=== PATIENT | female | born 1970 | race Two or more races ===

== ENCOUNTER 2020-07-11 16:42 | Emergency (ER) | payer SELFPAY ==
[2020-07-11 16:57] VITALS: BP 122/70; PULSE 82; RESP 16; TEMP 36.4; O2SAT 99
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
[2020-07-11] MEDS: HYDROcodone/acetaminophen (*CRX) 5-325 MG TABLET 1 TAB PO (19:30)
[2020-07-11] MEDS: LIDOCAINE HCL 2% VISC SOLN 15 ML UDC PO (19:31)
[2020-07-11 19:46] VITALS: BP 120/83; PULSE 68; RESP 16; TEMP 36.7; O2SAT 99
== END 2020-07-11 19:48 | disposition home or self-care (01) ==
PROVIDERS: Emergency Provider Emergency Medicine
DX: J02.9 Acute pharyngitis, unspecified (principal)
CPT/HCPCS: 87081; 87880; 99283; A9270

== ENCOUNTER 2024-09-28 15:00 | Emergency (ER) | payer SELFPAY ==
[2024-09-28] VITALS (13 sets, daily range): BP systolic 123–165; BP diastolic 76–87; PULSE 61–89; RESP 14–22; TEMP 36.4–36.7; O2SAT 99–100
--- NOTE | ~2024-09-28 | US_ITS ---
Limited ABDOMINAL ULTRASOUND (Doppler ultrasound interrogation techniques used as needed for this exa m.) Ordering provider: Eusebia Sykes MD History: . epigastric pain . Comparison: None. FINDINGS: PANCREAS: Normal echotexture and size. PORTAL VEIN: Hepatopedal flow demonstrated. LIVER: Normal size and increased echogenicity. No focal hepatic lesions or perihepatic fluid collecti ons are identified. BILIARY DUCTS: No intra or extrahepatic biliary dilation. Common bile duct measures 4.6 mm in diamete r which is normal for patient's age. GALLBLADDER: Normal. No stones, sludge, gallbladder wall thickening or pericholecystic fluid. Wall th ickness is 1.2 mm. Negative sonographic Dupree's sign. Inferior vena cava: Patent. FREE FLUID: None visualized within the upper abdomen. IMPRESSION: Right infiltration of the liver. Otherwise, normal limited abdominal ultrasound. Reviewed, dictated and finalized at location A. IMPRESSION: Right infiltration of the liver. Otherwise, normal limited abdominal ultrasound .
--- NOTE | ~2024-09-28 | CT_ITS ---
CT chest abdomen pelvis w con Ordering provider: Eusebia Sykes MD History: 54 years Female with . epigastric abd pain, heartburn . Comparison: None. Technique: CT chest with IV contrast. CT abdomen and pelvis CT abdomen and pelvis with IV and with or al contrast. Radiation reduction technique utilized.The dose-length product was 126.72 mGy-cm. FINDINGS: CHEST: --VISUALIZED THORACIC INLET: Normal. --MEDIASTINUM: Aorta/coronary arteries: The thoracic aorta is normal. Heart/other: The heart is not enlarged. Lymph nodes: No mediastinal or hilar adenopathy. --LUNGS: No pulmonary nodules or masses. No infiltrates or effusions. No pneumothorax. --MUSCULOSKELETAL: Soft tissues: The superficial soft tissues are normal. Bones: Age appropriate degenerative changes of the spine. No suspicious bony lytic or sclerotic lesio ns. ABDOMEN/PELVIS: --MUSCULOSKELETAL: Bones: Age appropriate degenerative changes of the spine. No suspicious bony lytic or sclerotic lesio ns. Superficial soft tissues: Tiny fat-containing umbilical hernia. The superficial soft tissues are norm al. --UPPER ABDOMINAL ORGANS: Liver: Normal. Gallbladder: Possible hyperdensities in the gallbladder is not excluded. Ultrasound evaluation advise d. Spleen: Normal. Stomach/duodenum: Normal. Pancreas: Normal. Adrenals: Left adrenal adenoma is seen measuring 2 x 1.9 cm. Further evaluation with dynamic MRI and clinical correlation advised. Kidneys: Normal. --PELVIC ORGANS: The bladder is underfilled with thickened wall. No bladder stones. --BOWEL AND MESENTERY: Colon: No evidence of appendicitis, diverticulitis or intestinal obstruction. The appendix is not dem onstrated.. Fecal material is loaded in the colon. Small Bowel: Normal. No obstruction. Peritoneum/mesentery: No free air or free fluid. No mesenteric lymphadenopathy. --RETROPERITONEUM: Normal aorta. No retroperitoneal lymphadenopathy. IMPRESSION: CHEST: 1. No acute cardiopulmonary pathology. ABDOMEN/PELVIS: 1. No evidence of appendicitis, diverticulitis or intestinal obstruction. 2. Constipation. 3. Left adrenal soft tissue density measuring 1.9 x 2 cm. Hounsfield unit is 84. Further evaluation with dynamic MRI is advised. 4. Possible hyperdensities in the gallbladder. Ultrasound evaluation advised. Reviewed, dictated and finalized at location A. IMPRESSION: CHEST: 1. No acute cardiopulmonary pathology. ABDOMEN/PELVIS: 1. No evidence of appendicitis, diverticulitis or intestinal obstruction. 2. Constipation. 3. Left adrenal soft tissue density measuring 1.9 x 2 cm. Hounsfield unit is 8 4. Further evaluation with dynamic MRI is advised. 4. Possible hyperdensities in the gallbladder. Ultrasound evaluation advised.
--- NOTE | 2024-09-28 15:11 | ECG_ITS ---
Test Date: 2024-09-28 15:30:15 Measurements Intervals [place] Rate: 75 P: 35 UT: 130 QRS: 10 QRSD: 84 T: 17 QT: 368 QTc: 411 Interpretive Statements SINUS RHYTHM CONSIDER RIGHT VENTRICULAR CONDUCTION DELAY LOW QRS VOLTAGE IN PRECORDIAL LEADS BASELINE ARTIFACT- I, II, III, AVR, AVL, AVF, V1-V3 BORDERLINE ECG No previous ECG available for comparison Electronically Signed On 09-28-2024 18:11:06 CDT by Ethan Obrien D.O.
--- NOTE | 2024-09-28 15:48 | ED_ITS ---
HPI - Abdominal Pain General Chief Complaint: Abdominal Pain Stated Complaint: abd pain Time Seen by Provider: 09/28/24 15:43 Source: patient and family (son) Mode of arrival: ambulatory Limitations: language barrier (Manager Erp [place] [id number]) History of Present Illness HPI narrative: Patient presents with multiple concerns. Most problematic is the epigatric abdominal pain with heartburn she has been experiencing for 3-4 days. She has been taking Zofran and gas relief as well as an OTC reflux medication and gaviscom. In addition, she has prescription bottles filled 09/27 for famotidine and pantoprazole prescribed by obdulio Motley through [facility]. It seems she presented to the ED for this issue there, not hospitalized and no further information known. No known GI diagnoses. Occasional rlq abdominal pain, especially when she sits up/flexion motion, she will get a firm lump like being . She has also been experiencing itchiness on her back and her helps by applying a hydrocortisone cream although they have never seen a rash there. History of 4 prior C sections but no other abdominal surgeries. Her symptoms are making it hard for her to eat and sleep. She has been constipated a little bit but no bloody stools. LBM was this morning. Has been eating rice. Did note that she had some fatty food and this made her symptoms worse. She has jodie nauseated but no vomiting (though at triage had said started vomiting after fatty foods so unclear). No Fevers/chills. Has had an increased need to burp. Also having a dry sore throat and left pain/cramping for months as well as an issue with the skin around her left ankle. Does not have a PCP. The medications she had been taking help briefly but wear off. Having heart burn. Becomes tearful at one point and states everything seems to be wrong / falling apart. Son notes that she seems to have more/worsening symptoms when having stressors in her life and most recently a grandson left. Related Data Home Medications ?Medication ?Instructions ?Recorded ?Confirmed ?Last Taken ?Type famotidine 20 mg tablet (Acid 20 mg PO BID 09/28/24 09/28/24 09/28/24 History Controller) pantoprazole 40 mg tablet,delayed 40 mg PO QAM 09/28/24 09/28/24 09/28/24 History release Allergies Allergy/AdvReac Type Severity Reaction Status Date / Time No Known Allergies Allergy Verified 09/28/24 15:11 PMFSH Surgical History Surgical History H/O excision of mass ?below arm History of section x4 Social History Social History Social History: Has a son Gender identity (if verbalized by the patient): Female Exam 2 Narrative: GENERAL: Well-appearing, well-nourished, and in no acute distress. HEAD: Normocephalic, atraumatic. EYES: Non injected, non icteric ENT: Nares clear, no rhinorrhea or epistaxis. Gross auditory acuity intact. Posterior oropharynx mildly hyperemic but without tonsilar hypertrophy/exudate NECK: Supple. No meningismus. CHEST: Speaking in full sentences. No respiratory distress. HEART: Regular rate and rhythm. . ABDOMEN: Soft, nondistended. No TTP throughout. No rigidity or guarding. Not peritoneal. Dupree negative. EXTREMITIES: Normal range of motion. SKIN: Warm, dry, no rash. In particular, no rash overlying back which is without erythema/excoriation/ecchymosis. NEURO: No focal deficits. Alert and oriented. Answering questions. Following commands. Normal speech without aphasia or dysarthria. PSYCH: Congruent mood and affect.Loquacious. Near the end of HPI/phyiscal exam encounter, becomes tearful. Does not appear to be responding to internal stimuli. Course Vital Signs Vital signs: Vital Signs Temperature 97.6 F 09/28/24 15:01 Pulse Rate 89 09/28/24 15:01 Respiratory Rate 16 09/28/24 15:01 Blood Pressure 149/76 H 09/28/24 15:01 Pulse Oximetry 100 09/28/24 15:01 Oxygen Delivery Room Air 09/28/24 15:01 Temperature 98.0 F 09/28/24 15:53 Pulse Rate 74 09/28/24 18:30 Respiratory Rate 16 09/28/24 18:30 Blood Pressure 165/87 H 09/28/24 16:15 Pulse Oximetry 100 09/28/24 18:30 Oxygen Delivery Room Air 09/28/24 15:53 MDM - Abdominal Pain MDM Narrative Medical decision making narrative: Patient presents with multiple concerns. Primary concern is epigastric abdominal pain and heartburn. Taking multiple medications already, some OTC and some apparently Rx from a provider through an ED yesterday. In the emergency department she is afebrile with acceptable vital signs, mild elevation in systolic blood pressure. Because patient already taking a number of first line medications, started with GI cocktail and then selected combination haldol and diphenhydramine for both pain/nausea and to facilitate some mild anxioloysis allowing her to lay still to obtain quality images for interpretation. Ultrasound read notes RIGHT infiltrate of liver. Initial assumption was that this was a dictation error to mean fatty but no mention of this in the body of the interpretation. I did attempt to contact the radiologist via the in-hospital number and cell phone but no response. Her lab work essentially unremarkable. Imaging as below. No leukocytosis. Normal renal function Extensively discussed patient's work up and discharge instructions using american sign language interpreter Robert [id number] from approximately 7:15-7:30pm. Patient and her son had many questions and I did my best to answer them. Noted that other than my written instructions in French which were being given with [place] interpretation, encouraged them to look at the discharge information in [place], especially regarding high fiber diet, constipation, etc. Went though individual medications prescribed and their role, and discussed the need for a PCP. Patient does report already drinking 2.5L water per day and I encouraged her in this. Discussed incidental finding and need for Pcp of which she is provided information for 2 different providers. Otherwise stable for discharge as no emergent etiology has been identified (low suspicion for surgical emergency / ischemic bowel / perforation / appendicitis. Differential Diagnosis Differential diagnosis: Likely abdominal pain, acute appendicitis, constipation, diverticulitis, endometriosis, pancreatitis and other (gastritis/GERD; biliary etiology; psychogenic/adjustment disorder; ACS; peptic/gastric ulcer disease) Lab Data Attestation: I reviewed the patient's lab results. 09/28/24 16:14 09/28/24 16:14 Labs: Lab Results 09/28/24 09/28/24 09/28/24 Range/Units 16:14 16:14 16:14 WBC 7.4 (4.5-10.0) K/mm3 RBC 4.71 (4.2-5.4) M/mm3 Hgb 13.9 (12.0-15.0) g/dL Hct 43.2 (37.0-47.0) % MCV 91.7 (80-100) fl MCH 29.5 (26-34) pg MCHC 32.2 (32-36) g/dl RDW 12.4 (11.5-14.5) % Plt Count 252 (150-375) k/mm3 MPV 10.1 (7.4-10.4) fl Immature Gran % (Auto) 0.3 (0-0.5) % Neut % (Auto) 65.4 (45.5-73.1) % Lymph % (Auto) 27.5 (18.3-44.2) % [place] % (Auto) 6.3 (2.6-8.5) % Eos % (Auto) 0.4 (0-4.4) % Baso % (Auto) 0.1 L (0.2-1.2) % Lymph # (Auto) 2.04 (0.9-3.2) K/mm3 [place] # (Auto) 0.5 (0.1-0.6) K/mm3 Eos # (Auto) 0.0 (0-0.3) K/mm3 Baso # (Auto) 0.0 (0.0-0.1) K/mm3 Abs Immat Gran (auto) 0.02 (0.00-0.031) K/mm3 Absolute Neuts (auto) 4.9 (1.3-6.7) K/mm3 Absolute Nucleated RBC 0.000 (0.0-0.012) K/mm3 Nucleated RBC % 0.0 (0.0-0.2) % Sodium Cancelled 142 Potassium Cancelled 3.8 Chloride Cancelled Carbon Dioxide Anion Gap BUN Creatinine Estim Creat Clear Calc Estimated GFR Glucose Calcium Magnesium (1.6-2.3) mg/dL Total Bilirubin AST ALT Alkaline Phosphatase Total Creatine Kinase (30-135) U/L Troponin I (0.000-0.034) ng/mL Total Protein Albumin Lipase Urine Color (Yellow) Urine Appearance (Clear) Urine pH (5.0-9.0) Ur Specific [place] (1.001-1.035) Urine Protein (Negative) mg/dL Urine Glucose (UA) (Negative) mg/dL Urine Ketones (Negative) mg/dL Ur Blood (Man) (Negative) Urine Nitrate (Negative) Urine Bilirubin (Negative) Urine Urobilinogen (<2.0) mg/dL Leukocyte Esterase Rfl (Negative) STEVE/UL Urine RBC (0-2) /hpf Urine WBC (0-3) /hpf Ur Squamous Epith Cells (Few) /hpf Urine Bacteria /hpf Urine Casts Urine Opiates Screen (Negative) Urine Methadone Screen (Negative) Ur Barbiturates Screen (Negative) Ur Phencyclidine Scrn (Negative) Ur Amphetamine Screen (Negative) U Benzodiazepines Scrn (Negative) Urine Cocaine Screen (Negative) U Cannabinoids Screen (Negative) 09/28/24 09/28/24 09/28/24 Range/Units 16:14 16:14 16:14 WBC (4.5-10.0) K/mm3 RBC (4.2-5.4) M/mm3 Hgb (12.0-15.0) g/dL Hct (37.0-47.0) % MCV (80-100) fl MCH (26-34) pg MCHC (32-36) g/dl RDW (11.5-14.5) % Plt Count (150-375) k/mm3 MPV (7.4-10.4) fl Immature Gran % (Auto) (0-0.5) % Neut % (Auto) (45.5-73.1) % Lymph % (Auto) (18.3-44.2) % [place] % (Auto) (2.6-8.5) % Eos % (Auto) (0-4.4) % Baso % (Auto) (0.2-1.2) % Lymph # (Auto) (0.9-3.2) K/mm3 [place] # (Auto) (0.1-0.6) K/mm3 Eos # (Auto) (0-0.3) K/mm3 Baso # (Auto) (0.0-0.1) K/mm3 Abs Immat Gran (auto) (0.00-0.031) K/mm3 Absolute Neuts (auto) (1.3-6.7) K/mm3 Absolute Nucleated RBC (0.0-0.012) K/mm3 Nucleated RBC % (0.0-0.2) % Sodium Potassium Chloride 105 Carbon Dioxide Cancelled 26 Anion Gap Cancelled 11 BUN Cancelled Creatinine Estim Creat Clear Calc Estimated GFR Glucose Calcium Magnesium (1.6-2.3) mg/dL Total Bilirubin AST ALT Alkaline Phosphatase Total Creatine Kinase (30-135) U/L Troponin I (0.000-0.034) ng/mL Total Protein Albumin Lipase Urine Color (Yellow) Urine Appearance (Clear) Urine pH (5.0-9.0) Ur Specific [place] (1.001-1.035) Urine Protein (Negative) mg/dL Urine Glucose (UA) (Negative) mg/dL Urine Ketones (Negative) mg/dL Ur Blood (Man) (Negative) Urine Nitrate (Negative) Urine Bilirubin (Negative) Urine Urobilinogen (<2.0) mg/dL Leukocyte Esterase Rfl (Negative) STEVE/UL Urine RBC (0-2) /hpf Urine WBC (0-3) /hpf Ur Squamous Epith Cells (Few) /hpf Urine Bacteria /hpf Urine Casts Urine Opiates Screen (Negative) Urine Methadone Screen (Negative) Ur Barbiturates Screen (Negative) Ur Phencyclidine Scrn (Negative) Ur Amphetamine Screen (Negative) U Benzodiazepines Scrn (Negative) Urine Cocaine Screen (Negative) U Cannabinoids Screen (Negative) 09/28/24 09/28/24 09/28/24 Range/Units 16:14 16:14 16:14 WBC (4.5-10.0) K/mm3 RBC (4.2-5.4) M/mm3 Hgb (12.0-15.0) g/dL Hct (37.0-47.0) % MCV (80-100) fl MCH (26-34) pg MCHC (32-36) g/dl RDW (11.5-14.5) % Plt Count (150-375) k/mm3 MPV (7.4-10.4) fl Immature Gran % (Auto) (0-0.5) % Neut % (Auto) (45.5-73.1) % Lymph % (Auto) (18.3-44.2) % [place] % (Auto) (2.6-8.5) % Eos % (Auto) (0-4.4) % Baso % (Auto) (0.2-1.2) % Lymph # (Auto) (0.9-3.2) K/mm3 [place] # (Auto) (0.1-0.6) K/mm3 Eos # (Auto) (0-0.3) K/mm3 Baso # (Auto) (0.0-0.1) K/mm3 Abs Immat Gran (auto) (0.00-0.031) K/mm3 Absolute Neuts (auto) (1.3-6.7) K/mm3 Absolute Nucleated RBC (0.0-0.012) K/mm3 Nucleated RBC % (0.0-0.2) % Sodium Potassium Chloride Carbon Dioxide Anion Gap BUN 7 Creatinine Cancelled 0.84 Estim Creat Clear Calc Cancelled Not Reportable Estimated GFR Cancelled Glucose Calcium Magnesium (1.6-2.3) mg/dL Total Bilirubin AST ALT Alkaline Phosphatase Total Creatine Kinase (30-135) U/L Troponin I (0.000-0.034) ng/mL Total Protein Albumin Lipase Urine Color (Yellow) Urine Appearance (Clear) Urine pH (5.0-9.0) Ur Specific [place] (1.001-1.035) Urine Protein (Negative) mg/dL Urine Glucose (UA) (Negative) mg/dL Urine Ketones (Negative) mg/dL Ur Blood (Man) (Negative) Urine Nitrate (Negative) Urine Bilirubin (Negative) Urine Urobilinogen (<2.0) mg/dL Leukocyte Esterase Rfl (Negative) STEVE/UL Urine RBC (0-2) /hpf Urine WBC (0-3) /hpf Ur Squamous Epith Cells (Few) /hpf Urine Bacteria /hpf Urine Casts Urine Opiates Screen (Negative) Urine Methadone Screen (Negative) Ur Barbiturates Screen (Negative) Ur Phencyclidine Scrn (Negative) Ur Amphetamine Screen (Negative) U Benzodiazepines Scrn (Negative) Urine Cocaine Screen (Negative) U Cannabinoids Screen (Negative) 09/28/24 09/28/24 09/28/24 Range/Units 16:14 16:14 16:14 WBC (4.5-10.0) K/mm3 RBC (4.2-5.4) M/mm3 Hgb (12.0-15.0) g/dL Hct (37.0-47.0) % MCV (80-100) fl MCH (26-34) pg MCHC (32-36) g/dl RDW (11.5-14.5) % Plt Count (150-375) k/mm3 MPV (7.4-10.4) fl Immature Gran % (Auto) (0-0.5) % Neut % (Auto) (45.5-73.1) % Lymph % (Auto) (18.3-44.2) % [place] % (Auto) (2.6-8.5) % Eos % (Auto) (0-4.4) % Baso % (Auto) (0.2-1.2) % Lymph # (Auto) (0.9-3.2) K/mm3 [place] # (Auto) (0.1-0.6) K/mm3 Eos # (Auto) (0-0.3) K/mm3 Baso # (Auto) (0.0-0.1) K/mm3 Abs Immat Gran (auto) (0.00-0.031) K/mm3 Absolute Neuts (auto) (1.3-6.7) K/mm3 Absolute Nucleated RBC (0.0-0.012) K/mm3 Nucleated RBC % (0.0-0.2) % Sodium Potassium Chloride Carbon Dioxide Anion Gap BUN Creatinine Estim Creat Clear Calc Estimated GFR > 60 Glucose Cancelled 113 H Calcium Cancelled 9.2 Magnesium 2.4 H (1.6-2.3) mg/dL Total Bilirubin Cancelled AST ALT Alkaline Phosphatase Total Creatine Kinase (30-135) U/L Troponin I (0.000-0.034) ng/mL Total Protein Albumin Lipase Urine Color (Yellow) Urine Appearance (Clear) Urine pH (5.0-9.0) Ur Specific [place] (1.001-1.035) Urine Protein (Negative) mg/dL Urine Glucose (UA) (Negative) mg/dL Urine Ketones (Negative) mg/dL Ur Blood (Man) (Negative) Urine Nitrate (Negative) Urine Bilirubin (Negative) Urine Urobilinogen (<2.0) mg/dL Leukocyte Esterase Rfl (Negative) STEVE/UL Urine RBC (0-2) /hpf Urine WBC (0-3) /hpf Ur Squamous Epith Cells (Few) /hpf Urine Bacteria /hpf Urine Casts Urine Opiates Screen (Negative) Urine Methadone Screen (Negative) Ur Barbiturates Screen (Negative) Ur Phencyclidine Scrn (Negative) Ur Amphetamine Screen (Negative) U Benzodiazepines Scrn (Negative) Urine Cocaine Screen (Negative) U Cannabinoids Screen (Negative) 09/28/24 09/28/24 09/28/24 Range/Units 16:14 16:14 16:14 WBC (4.5-10.0) K/mm3 RBC (4.2-5.4) M/mm3 Hgb (12.0-15.0) g/dL Hct (37.0-47.0) % MCV (80-100) fl MCH (26-34) pg MCHC (32-36) g/dl RDW (11.5-14.5) % Plt Count (150-375) k/mm3 MPV (7.4-10.4) fl Immature Gran % (Auto) (0-0.5) % Neut % (Auto) (45.5-73.1) % Lymph % (Auto) (18.3-44.2) % [place] % (Auto) (2.6-8.5) % Eos % (Auto) (0-4.4) % Baso % (Auto) (0.2-1.2) % Lymph # (Auto) (0.9-3.2) K/mm3 [place] # (Auto) (0.1-0.6) K/mm3 Eos # (Auto) (0-0.3) K/mm3 Baso # (Auto) (0.0-0.1) K/mm3 Abs Immat Gran (auto) (0.00-0.031) K/mm3 Absolute Neuts (auto) (1.3-6.7) K/mm3 Absolute Nucleated RBC (0.0-0.012) K/mm3 Nucleated RBC % (0.0-0.2) % Sodium Potassium Chloride Carbon Dioxide Anion Gap BUN Creatinine Estim Creat Clear Calc Estimated GFR Glucose Calcium Magnesium (1.6-2.3) mg/dL Total Bilirubin 0.8 AST Cancelled 35 ALT Cancelled 31 Alkaline Phosphatase Cancelled Total Creatine Kinase (30-135) U/L Troponin I (0.000-0.034) ng/mL Total Protein Albumin Lipase Urine Color (Yellow) Urine Appearance (Clear) Urine pH (5.0-9.0) Ur Specific [place] (1.001-1.035) Urine Protein (Negative) mg/dL Urine Glucose (UA) (Negative) mg/dL Urine Ketones (Negative) mg/dL Ur Blood (Man) (Negative) Urine Nitrate (Negative) Urine Bilirubin (Negative) Urine Urobilinogen (<2.0) mg/dL Leukocyte Esterase Rfl (Negative) STEVE/UL Urine RBC (0-2) /hpf Urine WBC (0-3) /hpf Ur Squamous Epith Cells (Few) /hpf Urine Bacteria /hpf Urine Casts Urine Opiates Screen (Negative) Urine Methadone Screen (Negative) Ur Barbiturates Screen (Negative) Ur Phencyclidine Scrn (Negative) Ur Amphetamine Screen (Negative) U Benzodiazepines Scrn (Negative) Urine Cocaine Screen (Negative) U Cannabinoids Screen (Negative) 09/28/24 09/28/24 09/28/24 Range/Units 16:14 16:14 16:14 WBC (4.5-10.0) K/mm3 RBC (4.2-5.4) M/mm3 Hgb (12.0-15.0) g/dL Hct (37.0-47.0) % MCV (80-100) fl MCH (26-34) pg MCHC (32-36) g/dl RDW (11.5-14.5) % Plt Count (150-375) k/mm3 MPV (7.4-10.4) fl Immature Gran % (Auto) (0-0.5) % Neut % (Auto) (45.5-73.1) % Lymph % (Auto) (18.3-44.2) % [place] % (Auto) (2.6-8.5) % Eos % (Auto) (0-4.4) % Baso % (Auto) (0.2-1.2) % Lymph # (Auto) (0.9-3.2) K/mm3 [place] # (Auto) (0.1-0.6) K/mm3 Eos # (Auto) (0-0.3) K/mm3 Baso # (Auto) (0.0-0.1) K/mm3 Abs Immat Gran (auto) (0.00-0.031) K/mm3 Absolute Neuts (auto) (1.3-6.7) K/mm3 Absolute Nucleated RBC (0.0-0.012) K/mm3 Nucleated RBC % (0.0-0.2) % Sodium Potassium Chloride Carbon Dioxide Anion Gap BUN Creatinine Estim Creat Clear Calc Estimated GFR Glucose Calcium Magnesium (1.6-2.3) mg/dL Total Bilirubin AST ALT Alkaline Phosphatase 65 Total Creatine Kinase 42 (30-135) U/L Troponin I < 0.012 (0.000-0.034) ng/mL Total Protein Cancelled 8.3 H Albumin Cancelled 4.6 Lipase Cancelled Urine Color (Yellow) Urine Appearance (Clear) Urine pH (5.0-9.0) Ur Specific [place] (1.001-1.035) Urine Protein (Negative) mg/dL Urine Glucose (UA) (Negative) mg/dL Urine Ketones (Negative) mg/dL Ur Blood (Man) (Negative) Urine Nitrate (Negative) Urine Bilirubin (Negative) Urine Urobilinogen (<2.0) mg/dL Leukocyte Esterase Rfl (Negative) STEVE/UL Urine RBC (0-2) /hpf Urine WBC (0-3) /hpf Ur Squamous Epith Cells (Few) /hpf Urine Bacteria /hpf Urine Casts Urine Opiates Screen (Negative) Urine Methadone Screen (Negative) Ur Barbiturates Screen (Negative) Ur Phencyclidine Scrn (Negative) Ur Amphetamine Screen (Negative) U Benzodiazepines Scrn (Negative) Urine Cocaine Screen (Negative) U Cannabinoids Screen (Negative) 09/28/24 09/28/24 Range/Units 16:14 16:36 WBC (4.5-10.0) K/mm3 RBC (4.2-5.4) M/mm3 Hgb (12.0-15.0) g/dL Hct (37.0-47.0) % MCV (80-100) fl MCH (26-34) pg MCHC (32-36) g/dl RDW (11.5-14.5) % Plt Count (150-375) k/mm3 MPV (7.4-10.4) fl Immature Gran % (Auto) (0-0.5) % Neut % (Auto) (45.5-73.1) % Lymph % (Auto) (18.3-44.2) % [place] % (Auto) (2.6-8.5) % Eos % (Auto) (0-4.4) % Baso % (Auto) (0.2-1.2) % Lymph # (Auto) (0.9-3.2) K/mm3 [place] # (Auto) (0.1-0.6) K/mm3 Eos # (Auto) (0-0.3) K/mm3 Baso # (Auto) (0.0-0.1) K/mm3 Abs Immat Gran (auto) (0.00-0.031) K/mm3 Absolute Neuts (auto) (1.3-6.7) K/mm3 Absolute Nucleated RBC (0.0-0.012) K/mm3 Nucleated RBC % (0.0-0.2) % Sodium Potassium Chloride Carbon Dioxide Anion Gap BUN Creatinine Estim Creat Clear Calc Estimated GFR Glucose Calcium Magnesium (1.6-2.3) mg/dL Total Bilirubin AST ALT Alkaline Phosphatase Total Creatine Kinase (30-135) U/L Troponin I (0.000-0.034) ng/mL Total Protein Albumin Lipase 86 Urine Color Yellow (Yellow) Urine Appearance Clear (Clear) Urine pH 7.0 (5.0-9.0) Ur Specific [place] 1.003 (1.001-1.035) Urine Protein Negative (Negative) mg/dL Urine Glucose (UA) Negative (Negative) mg/dL Urine Ketones Negative (Negative) mg/dL Ur Blood (Man) 1+ H (Negative) Urine Nitrate Negative (Negative) Urine Bilirubin Negative (Negative) Urine Urobilinogen 0.2 (<2.0) mg/dL Leukocyte Esterase Rfl Trace H (Negative) STEVE/UL Urine RBC 0-2 (0-2) /hpf Urine WBC 0-5 (0-3) /hpf Ur Squamous Epith Cells None seen (Few) /hpf Urine Bacteria None seen /hpf Urine Casts 0-2 Urine Opiates Screen Negative (Negative) Urine Methadone Screen Negative (Negative) Ur Barbiturates Screen Negative (Negative) Ur Phencyclidine Scrn Negative (Negative) Ur Amphetamine Screen Negative (Negative) U Benzodiazepines Scrn Negative (Negative) Urine Cocaine Screen Negative (Negative) U Cannabinoids Screen Negative (Negative) Imaging Data Radiologist's impression: ITS Impressions Abdomen Ultrasound 09/28/24 17:15 IMPRESSION: Right infiltration of the liver. Otherwise, normal limited abdominal ultrasound. Chest/Abdomen/Pelvis CT 09/28/24 18:17 IMPRESSION: CHEST: 1. No acute cardiopulmonary pathology. ABDOMEN/PELVIS: 1. No evidence of appendicitis, diverticulitis or intestinal obstruction. 2. Constipation. 3. Left adrenal soft tissue density measuring 1.9 x 2 cm. Hounsfield unit is 84. Further evaluation with dynamic MRI is advised. 4. Possible hyperdensities in the gallbladder. Ultrasound evaluation advised. ECG Data EKG #1: Attestation: I personally reviewed and interpreted this ECG as follows: ECG completion date: 09/28/24 ECG completion time: 15:30 Interpretation: Normal sinus rhythm at a rate of 75 beats per minute. WI interval 130. QRS 84. QT/QTC 368/397. R-wave progression across precordial leads. T-wave inversion isolated to lead 3 but otherwise upright in normal in contiguous inferior leads. No other T-wave inversions. Discharge Plan Discharge Clinical Impression: Epigastric pain, Constipation, Heartburn, Pruritus, Adrenal mass, left Patient Disposition: Home Condition: Stable Instructions: Antibiotic Form, Constipation (ED), High Fiber Diet (ED), Indigestion (ED), Itchy Skin (ED), Epigastric Pain (ED) Additional Instructions: You can continue taking the medications you have been taking (prescribed and over the counter) for your heartburn symptoms. You did have evidence of constipation on your CT scan and for this I would recommend increasing the amount of water your drinking, incorporating more fiber in your diet, and a bowel regimen to include stool softener such as metamucil, Miralax, and laxative such as magnesium citrate. For the itching you experience, Atarax/hydroxyzine has been prescribed and this can also help with some of the anxiety/stress you have been going through. Incidentally found: Left adrenal soft tissue density measuring 1.9 x 2 cm. Further evaluation with dynamic MRI is advised. Your primary care physician can help arrange this. Because you do not have 1 the name of a doctor is listed below. Alternatively, there is a provider that speaks [place] if you prefer though I do not know if they are accepting patients. Her name is Jeannie Galaviz ([phone]). Patient Language: [place] Prescriptions: New psyllium husk [Metamucil] 0.4 gram capsule 0.4 g PO DAILY Qty: 30 0RF polyethylene glycol 3350 [Miralax] 17 gram/dose powder 17 g PO DAILY Qty: 119 0RF magnesium citrate Solution 150 ml PO DAILY PRN (Reason: constipation) Qty: 296 0RF hydroxyzine HCl 10 mg tablet 10 mg PO TID PRN (Reason: itching) Qty: 15 0RF No Action chlorhexidine gluconate [Peridex] 0.12 % mouthwash 15 ml mucous membrane BID Qty: 118 0RF amoxicillin 500 mg capsule 500 mg PO Q8H 10 Days Qty: 30 0RF Lidocaine Viscous 2 % solution 1 applic mucous membrane TID PRN (Reason: pain) Qty: 100 0RF Rx Instructions: gargle and spit as needed for pain ibuprofen [IBU] 600 mg tablet 600 mg PO Q6H PRN (Reason: fever or pain) Qty: 7 0RF famotidine [Acid Controller] 20 mg tablet 20 mg PO BID pantoprazole 40 mg tablet,delayed release (DR/EC) 40 mg PO QAM Follow-up/Referrals: PHYSICIAN,GENERAL MANAGER FOOD [Primary Care Provider] - Sy Wilkerson MD [Physician] - Stand Alone Forms: Work/School Release IP Time of Disposition: 19:04
[2024-09-28 16:19] LABS: Basophils Percent Auto 0.1 % (0.2-1.2); Eosinophils Percent Auto 0.4 % (0-4.4); Hematocrit 43.2 % (37.0-47.0); Hemoglobin 13.9 g/dL (12.0-15.0); Immature Granulocyte Absolute 0.02 K/mm3 (0.00-0.031); Immature Granulocyte Percent A 0.3 % (0-0.5); Lymphocytes Absolute Auto 2.04 K/mm3 (0.9-3.2); Lymphocytes Percent Auto 27.5 % (18.3-44.2); Mean Corpuscular HGB Conc 32.2 g/dl (32-36); Mean Corpuscular Hemoglobin 29.5 pg (26-34); Mean Corpuscular Volume 91.7 fl (80-100); Mean Platelet Volume 10.1 fl (7.4-10.4); Monocytes Absolute Auto 0.5 K/mm3 (0.1-0.6); Monocytes Percent Auto 6.3 % (2.6-8.5); Neutrophils Absolute Auto 4.9 K/mm3 (1.3-6.7); Neutrophils Percent Auto 65.4 % (45.5-73.1); Platelet Count Result 252 k/mm3 (150-375); Red Blood Count 4.71 M/mm3 (4.2-5.4); Red Cell Distribution Width 12.4 % (11.5-14.5); White Blood Count 7.4 K/mm3 (4.5-10.0)
[2024-09-28] MEDS: diphenhydrAMINE HCl INJ 50 MG/ML VIAL 25 MG IV PUSH (16:21)
[2024-09-28] MEDS: HALOPERIDOL LACTATE 5 MG/ML VIAL 2.5 MG IV PUSH (16:21)
[2024-09-28] MEDS: BELLADONNA ALK/PHENOB ELIX 10 ML, MAG HYDROX/ALUMINUM HYD/SIMETH 30 ML, LIDOCAINE 2% VI... PO (16:22)
[2024-09-28 16:31] LABS: Alanine Aminotransferase 31 U/L (6-35); Albumin Level 4.6 g/dL (3.5-5.1); Alkaline Phosphatase 65 U/L (38-126); Anion Gap 11 mmol/L (4-12); Aspartate Amino Transferase 35 U/L (14-36); Bilirubin,Total 0.8 mg/dL (0.2-1.3); Blood Urea Nitrogen 7 mg/dL (7-17); Calcium 9.2 mg/dL (8.4-10.2); Carbon Dioxide 26 mmol/L (22-30); Chloride 105 mmol/L (98-107); Creatine Kinase 42 U/L (30-135); Estimated Glomerular Filt Rate > 60; Glucose 113 mg/dL (65-110); Lipase 86 U/L (23-300); Magnesium 2.4 mg/dL (1.6-2.3); Potassium 3.8 mmol/L (3.4-5.0); Sodium 142 mmol/L (137-145); Total Protein 8.3 g/dL (6.3-8.2)
--- NOTE | 2024-09-28 16:31 | PC.NURSE ---
BG 153.
[2024-09-28 16:42] LABS: Troponin I < 0.012 ng/mL (0.000-0.034)
[2024-09-28 16:48] LABS: Add Urine Microscopic? YES; Appearance Urine Clear (Clear); Bacteria Urine None Seen /hpf; Bilirubin Urine Negative (Negative); Blood Urine 1+ (Negative); Color Urine Yellow (Yellow); Glucose Urine UA Negative (Negative); Ketones Urine Negative (Negative); Leukocyte Esterase Ur Trace LEU/UL (Negative); Nitrate Urine Negative (Negative); Non Pathogenic Casts 0-2; Protein Urine Negative (Negative); RBC Urine 0-2 /hpf (0-2); Specific Grav Ur 1.003 (1.001-1.035); Squamous Epithelial Cell Urine None Seen /hpf (Few); Urobilinogen Urine 0.2 mg/dL (<2.0); WBC Urine 0-5 /hpf (0-3)
[2024-09-28 16:58] LABS: Amphetamine Screen Urine Negative (Negative); Barbiturate Screen Urine Negative (Negative); Benzodiazepines Screen Urine Negative (Negative); Cannabinoid Screen Urine Negative (Negative); Cocaine Screen Urine Negative (Negative); Methadone Screen Urine Negative (Negative); Opiate Screen Urine Negative (Negative); Phencyclidine Screen Urine Negative (Negative)
[2024-09-28] MEDS: polyethylene glycoL 3350 17 GM POWD.PACK PO (19:15)
[2024-09-28] MEDS: DICYCLOMINE HCL 10 MG CAPSULE PO (19:15)
== END 2024-09-28 19:32 | disposition home or self-care (01) ==
PROVIDERS: Emergency Provider Student in an Organized Health Care Education/Training Program
DX: K59.00 Constipation, unspecified (principal); R12 Heartburn; L29.9 Pruritus, unspecified; E27.9 Disorder of adrenal gland, unspecified
CPT/HCPCS: 36415; 71260; 74177; 76705; 80053; 80307; 81001; 82550; 83690; 83735; 84484; 85025; 93005; 96374; 96375; 99284; A9270; J1200; J1630; Q9967